=== PATIENT | male | born 1975 | race Caucasian/White ===

== ENCOUNTER 2024-04-06 17:54 | Emergency (ER) | payer SELFPAY ==
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
[2024-04-06 17:54] VITALS: BP 122/89; PULSE 79; RESP 20; TEMP 36.4; O2SAT 96
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
--- NOTE | 2024-04-06 19:22 | PC.NURSE ---
Report received from BIBI Santamaria. Assumed care of patient at this time.
--- NOTE | 2024-04-06 19:38 | PC.NURSE ---
Patient ambulates in hallway with steady unassisted gait. ERP notified.
[2024-04-06 19:53] VITALS: BP 101/71; PULSE 68; RESP 19; O2SAT 100
== END 2024-04-06 20:01 | disposition home or self-care (01) ==
PROVIDERS: Emergency Provider Emergency Medicine
DX: S00.83XA Contusion of other part of head, initial encounter (principal); F10.129 Alcohol abuse with intoxication, unspecified; Y90.9 Presence of alcohol in blood, level not specified; Z59.00 Homelessness unspecified; V18.4XXA Pedal cycle driver injured in noncollision transport accident in traffic accident, initial encounter; Y93.55 Activity, bike riding
CPT/HCPCS: 70450; 72125; 99284